=== PATIENT | female | born 1955 | race Caucasian/White ===

== ENCOUNTER → 2017-12-21 | Outpatient (CLI) | payer OTHER ==
[~2017-12-21] MED LIST: APIX5TAB PO; ATOR10TA24 PO; ATOR40TA24 PO; DOFE125C3 PO; FURO-45 PO; LISI-362 PO; LOR5/325 PO; POTA20TA10
== END ==
LOC: LAB 09:04
PROVIDERS: ATTEND Emergency Medicine
DX: E78.5 Hyperlipidemia, unspecified (principal)
CPT/HCPCS: 36415; 82465; 83718; 84478

== ENCOUNTER → 2018-02-02 | Outpatient (CLI) | payer OTHER ==
--- NOTE | 2018-02-02 15:02 | RADIOLOGY IMAGING REPORT ---
FACILITY: [facility] - [place], [place] PATIENT NAME: Magi Ramirez : 1955 MR: [id number] V: [id number] EXAM DATE: ORDERING PHYSICIAN: KATHERINE MELARA TECHNOLOGIST: Location: [facility] - [place] Patient: Magi Ramirez : 1955 Visit/Account:[id number] Date of Sevice: 02/02/2018 THORACIC SPINE 3 VIEWS Indication: sharp back pain Comparison: None Findings: Thoracic vertebral bodies are intact. There is disc space narrowing and anterior osteophyt es at multiple levels of the thoracic spine. IMPRESSION: 1. No evidence of fracture. 2. Multilevel thoracic spondylosis. Report Dictated By: Arslan John at 02/02/2018 2:57 PM Report E-Signed By: Arslan John at 02/02/2018 2:57 PM WSN:[id number]
== END ==
LOC: RAD 14:12
PROVIDERS: ATTEND Nurse Practitioner Family
DX: M47.814 Spondylosis without myelopathy or radiculopathy, thoracic region (principal)
CPT/HCPCS: 72072

== ENCOUNTER → 2018-03-16 | Outpatient (CLI) | payer OTHER | LOC: RESP 19:46 | PROVIDERS: ATTEND Emergency Medicine | DX: G47.33 Obstructive sleep apnea (adult) (pediatric) (principal); G47.36 Sleep related hypoventilation in conditions classified elsewhere; E66.9 Obesity, unspecified ==

== ENCOUNTER → 2018-03-17 | Outpatient (CLI) | payer OTHER | LOC: LAB 08:33 | PROVIDERS: ATTEND Emergency Medicine | DX: E78.5 Hyperlipidemia, unspecified (principal) | CPT/HCPCS: 36415; 82465; 83718; 84478 ==

== ENCOUNTER → 2018-04-21 | Outpatient (CLI) | payer OTHER ==
--- NOTE | 2018-04-21 11:28 | RADIOLOGY IMAGING REPORT ---
FACILITY: [facility] - [place] PATIENT NAME: BRANDT COCHRAN : [id number] MR: [id number] V: [id number] EXAM DATE: ORDERING PHYSICIAN: TANMAY CRUZ TECHNOLOGIST: Sharron Reyes PROCEDURE:BILATERAL DIAGNOSTIC DIGITAL MAMMOGRAM WITH CAD ASSISTED INTERPRETATION & 3D TOMOSYNTHESIS COMPARISON:Prior mammograms 07/22/17, 12/24/16, 11/26/16. INDICATIONS:6 month follow-up FINDINGS: A small to moderate amount of fibroglandular tissue is seen throughout the breasts. The parenchymal pattern has remained stable allowing for difference in mammographic technique & patient positioning. A small loosely grouped calcifications in mediolateral Right breast and lateral Left breast have remained stable. A 6 month follow-up bilateral mammogram is recommend at which time the patient's parenchymal pattern and calcifications will have been followed for a 2 year period. DIAGNOSTIC CATEGORY 3--PROBABLY BENIGN FINDING. RECOMMENDATIONS: SIX MONTH FOLLOW-UP DIAGNOSTIC MAMMOGRAM: BILATERAL BREASTS. IMPRESSION: BIRADS 3: Probably benign finding. A 6 month follow-up bilateral mammogram is recommended as described above. Dictated by: Anaya Medina M.D. on 04/21/2018 at 9:50 Transcribed by: REGINE on 04/21/2018 at 10:20 Approved by: Anaya Medina M.D. on 04/21/2018 at 11:27 [facility]
== END ==
LOC: MAMO 02:12
PROVIDERS: ATTEND Emergency Medicine
DX: R92.1 Mammographic calcification found on diagnostic imaging of breast (principal)
CPT/HCPCS: 77062; 77066

== ENCOUNTER → 2018-09-29 | Outpatient (CLI) | payer OTHER ==
[~2018-09-29] MED LIST changes: +FLU60VIA41 IM
--- NOTE | 2018-09-29 14:29 | RADIOLOGY IMAGING REPORT ---
FACILITY: [facility] - [place] PATIENT NAME: BRANDT COCHRAN : [id number] MR: [id number] V: [id number] EXAM DATE: ORDERING PHYSICIAN: TANMAY CRUZ TECHNOLOGIST: Sharron Reyes PROCEDURE:BILATERAL DIAGNOSTIC DIGITAL MAMMOGRAM WITH CAD ASSISTED INTERPRETATION & 3D TOMOSYNTHESIS COMPARISON:Prior mammograms 04/21/18, 07/27/17, 12/04/16, 11/26/16. INDICATIONS:6 mo follow up, abnormal mammogram FINDINGS: The patient received bilateral CC & MLO views in addition to Spot compression views in the Left CC projection. Mildly heterogeneous fibroglandular tissue is seen throughout the breasts. The parenchymal pattern has remained stable allowing for difference in mammographic technique & patient positioning. The loosely grouped round calcifications in the medial and lateral aspect of the Right breast and the lateral Left breast have remained stable. These have remained stable over a 2 year period. DIAGNOSTIC CATEGORY 2--BENIGN FINDING. RECOMMENDATIONS: ROUTINE MAMMOGRAM AND CLINICAL EVALUATION. IMPRESSION: BIRADS 2: Benign finding. Bilateral breast calcifications have remained stable over a 2 year period. Dictated by: Anaya Medina M.D. on 09/29/2018 at 14:04 Transcribed by: REGINE on 09/29/2018 at 14:20 Approved by: Anaya Medina M.D. on 09/29/2018 at 14:28 [facility]
== END ==
LOC: MAMO 03:37
PROVIDERS: ATTEND Emergency Medicine
DX: R92.1 Mammographic calcification found on diagnostic imaging of breast (principal); R92.8 Other abnormal and inconclusive findings on diagnostic imaging of breast
CPT/HCPCS: 77062; 77066